=== PATIENT | male | born 1975 | race Caucasian/White ===

== ENCOUNTER 2021-04-04 21:53 | Emergency (ER) | payer MEDICAID, SELFPAY ==
[2021-04-04 21:54] VITALS: BP 129/53; PULSE 79; RESP 18; TEMP 36.4; O2SAT 97; BMI 28.5
--- NOTE | 2021-04-04 22:57 | EX.ED.DYSGE1 ---
HPI History of Present Illness Chief Complaint: Wound Informant: patient Narrative Narrative: Patient is a 45-year-old previously healthy male who presents to the emergency department for right ring finger swelling. He first noticed this 2 days ago. He has not been able to get his ring off of the finger. There is a pustule on the dorsal aspect of the finger. No active draining. He denies any systemic symptoms including any fever/chills or nausea/vomiting. No streaking up the arm. He still has sensation of the finger. He states he has chronic sensation loss as the previously injured his wrist before. Patient tried multiple times to cut the ring off but has not been able to. PFSH PFSH Home Medications cephalexin 500 mg PO Q6H 7 Days #28 cap 04/05/21 [Rx Last Taken Unknown] Allergy/AdvReac Type Severity Reaction Status Date / Time No Known Allergies Allergy Verified 04/04/21 21:56 Social History (Updated 04/04/21 @ 22:[address] Tip Leon, DO) Smoking Status: Current every day smoker tobacco type: cigarettes ROS ROS ED Constitutional Constitutional ED: Denies chills or fever(s) ENT ENT ED: Denies epistaxis or rhinorrhea Cardiovascular Cardiovascular: Denies chest pain or palpitations Respiratory/Chest Respiratory/Chest: Denies cough or dyspnea Gastrointestinal Gastrointestinal: Denies abdominal pain, nausea or vomiting Musculoskeletal Musculoskeletal: Denies back pain or neck pain Integumentary Reports abscess Neurologic Neurologic: Denies dizziness, headache(s) or weakness EXAM Physical Exam Const Vital Signs: 04/04/21 21:54 Temperature 97.6 F L Temperature Source Temporal Pulse Rate 79 Respiratory Rate 18 Blood Pressure 129/53 H Blood Pressure Mean 78 Pulse Ox 97 Oxygen Delivery Method Room Air Positive well nourished and well developed General Appearance ED: well developed and NAD HEENT Reports normocephalic and head/scalp atraumatic Eyes PERRL and EOMs intact bilaterally Neck supple Resp normal respiratory effort and clear to auscultation bilaterally Auscultation: Negative for rales, rhonchi or wheezes Cardio regular rate, regular rhythm and no murmurs Extremity Extremity Narrative: Right ring finger is swollen, erythematous. Pustule present. His ring is stuck on the finger. Sensation intact. This patient is a he will able to move the finger but limited due to edema. Neuro no sensory deficits noted Sensorium / Orientation: alert Motor Exam: strength 5/5 throughout Psych mental status grossly normal MDM MDM MDM Narrative Medical decision making narrative: Patient presents to the ED for ring stuck on finger. There is erythema and pustule present on the back of the finger. Upon arrival vital signs within normal limits. He otherwise is in no acute distress. Patient placed in finger and ice to help decrease swelling. Digital block is being performed. Will attempt to remove ring. Digital block was performed on the ring finger. 5 cc of 1% lidocaine injected after the area was cleaned with alcohol pad. I did have patient placed finger and ice to try to decrease the swellingI did get assitance from Dr. Thakur as the ring was very difficult to remove. We did attempt to cut the ring off with the ring cutter but unfortunately the blade was dull and were having issues cutting through the metal. We did attempt to decrease the edema by wrapping the finger with wound packing. Unfortunate this did not decrease the edema at all. The pustule was then lanced to try to decrease some of the swelling. I did get a small amount of purulent material as well as scant blood. Patient states he got immediate relief after this was performed. Eventually we were able to get the ring cut with a different ring cutter. Patient ended up leaving prior to getting discharge paperwork. With the significant swelling, purulent discharge I was going to call him in an antibiotic. We will send this to his pharmacy and make a social work referral to make sure patient is aware that this is sent to his pharmacy. He is to follow-up with his PCP. Discharge Plan Triage Chief Complaint: Wound ED Provider: Tip Leon Dx/Rx/DC Orders Clinical Impression: External constriction of finger Prescriptions: New cephalexin 500 mg capsule 500 mg PO Q6H 7 Days Qty: 28 RF: 0 Primary Care Provider: Care Physician,No Primary Referrals: Care Physician,No Primary [Primary Care Provider] - Disposition Disposition: Home, self care Discharge Date/Time: 04/05/21 01:55
[2021-04-05] MEDS: Lidocaine 1% (20 ml mdv) 20 ML Vial 5 ML INFILT (01:54)
--- NOTE | 2021-04-05 20:39 | CM.ED ---
SOCIAL WORK Attempted to contact patient several times to update prescription for antibiotic has been called into pharmacy. No answer and unable to leave voicemail. Donte Jackson, STALLION MANAGER, [employer]
== END 2021-04-05 01:55 | disposition home or self-care (01) ==
PROVIDERS: Emergency Provider Emergency Medicine
DX: S60.444A External constriction of right ring finger, initial encounter (principal); L08.9 Local infection of the skin and subcutaneous tissue, unspecified; F17.210 Nicotine dependence, cigarettes, uncomplicated; W49.04XA Ring or other jewelry causing external constriction, initial encounter; Y93.89 Activity, other specified; Y92.89 Other specified places as the place of occurrence of the external cause; Y99.8 Other external cause status
CPT/HCPCS: 99282

== ENCOUNTER 2021-04-10 00:58 | Emergency (ER) | payer MEDICAID, SELFPAY ==
[2021-04-10 00:59] VITALS: BP 111/74; PULSE 62; RESP 18; TEMP 36.5; O2SAT 99; BMI 27.8
[2021-04-10] MEDS: Fluorescein 1 MG STRIP 1 STRIP RIGHT EYE (01:48)
[2021-04-10] MEDS: Tetracaine 0.5% Ophthalmic Bottle 1 DRP RIGHT EYE (01:48)
[2021-04-10] MEDS: Erythromycin Base 1 OPTH.TUBE 1 APPLIC RIGHT EYE (02:04)
--- NOTE | 2021-04-10 04:32 | EX.ED.VIS.EY ---
HPI History of Present Illness Chief Complaint: Eye Problem Narrative Narrative: 45-year-old male presenting with right eye pain. He states something flew into his eye while he was working today and is gradually gotten worse. He has been rubbing his eye as well. He is not a contact wearer. PFSH PFSH no medical history Home Medications NK 04/10/21 [History Last Taken Unknown] erythromycin 1 applic RIGHT EYE BID #3.5 g 04/10/21 [Rx Last Taken Unknown] Allergy/AdvReac Type Severity Reaction Status Date / Time No Known Allergies Allergy Verified 04/10/21 00:58 Social History Smoking Status: Current every day smoker tobacco type: cigarettes ROS ROS ED Constitutional Constitutional ED: Denies fever(s) or subjective Eyes Eyes: Reports change in vision and other Details: Right eye irritation and injection ENT ENT ED: Denies ear pain or rhinorrhea Cardiovascular Cardiovascular: Denies chest pain or palpitations Respiratory/Chest Respiratory/Chest: Denies cough, dyspnea or sputum Gastrointestinal Gastrointestinal: Denies abdominal pain or nausea Genitourinary Genitourinary ED: Denies dysuria, hematuria or urinary frequency Musculoskeletal Musculoskeletal: Denies arthralgias or myalgias Integumentary Denies abscess or rash Neurologic Neurologic: Denies headache(s) Psychiatric Psychiatric: Denies anxiety or depression EXAM Physical Exam Const Vital Signs: 04/10/21 00:59 Temperature 97.7 F L Temperature Source Temporal Pulse Rate 62 Respiratory Rate 18 Blood Pressure 111/74 Blood Pressure Mean 86 Pulse Ox 99 Oxygen Delivery Method Room Air Eyes Visual Acuity: acuity normal Eyelid: eyelids normal Pupil: PERRL EOM: EOM abnormal Slit Lamp: slit lamp exam performed with fluorescein, lids/lashes/lacrimal system and cornea other (Corneal abrasion noted at the 6 to 7 o'clock position.) Resp normal respiratory effort and clear to auscultation bilaterally Cardio regular rate and regular rhythm Extremity normal to inspection Neuro oriented x3 Sensorium / Orientation: alert Skin Lesions: no lesions Rashes: no rashes MDM MDM MDM Narrative Medical decision making narrative: Patient seen and evaluated for eye pain and irritation. Is worsened over the course of the day. He states that a small piece of something got in his eye earlier today. He has been rubbing his eye. He is not a contact wearer. I did stain his eye with fluorescein although it was technically difficult to examine his eye because the patient kept covering his eye and could not even pull his eye open with his own hands. I did eventually get it stained and visualized corneal abrasion at the 6 to 7 o'clock position. He will be started on erythromycin. He is given follow-up with ophthalmology. He is discharged in stable condition. Impression: 1. Corneal abrasion right eye Discharge Plan Triage Chief Complaint: Eye Problem ED Provider: Will Drake Dx/Rx/DC Orders Instructions: ED Corneal Abrasion Prescriptions: New erythromycin 5 mg/gram (0.5 %) ointment 1 applic RIGHT EYE BID Qty: 3.5 RF: 0 No Action NK RF: 0 Primary Care Provider: Care Physician,No Primary Referrals: Kirk Chow MD [STAFF PHYSICIAN] - As soon as possible Care Physician,No Primary [Primary Care Provider] - Disposition Disposition: Home, self care Discharge Date/Time: 04/10/21 02:06
== END 2021-04-10 02:06 | disposition home or self-care (01) ==
LOC: ED 01:56
PROVIDERS: Emergency Provider Student in an Organized Health Care Education/Training Program
DX: S05.01XA Injury of conjunctiva and corneal abrasion without foreign body, right eye, initial encounter (principal); F17.210 Nicotine dependence, cigarettes, uncomplicated; X58.XXXA Exposure to other specified factors, initial encounter
CPT/HCPCS: 99282